=== PATIENT | male | born 1965 | race Caucasian/White ===

== ENCOUNTER 2019-07-21 16:30 | Outpatient (RCR) | payer OTHER, SELFPAY ==
--- NOTE | 2019-07-11 08:55 | PCCPR ---
Rt shoulder pain 3/10 more aggravation not certain if caused by lifting
[2019-07-11 10:06] VITALS: PULSE 56
--- NOTE | 2019-07-30 17:50 | PCCPR ---
Continued absence without call Called Bonifacio and left message requesting he give us a call and update us with his plan to return.
--- NOTE | 2019-08-04 07:26 | PCCPR ---
Bonifacio called and request discharge from program due to work schedule and financial obligation.
== END 2019-08-04 07:33 | disposition home or self-care (01) ==
LOC: ANHCPREHAB 16:30
PROVIDERS: Visit Provider Internal Medicine Cardiovascular Disease
DX: Z95.5 Presence of coronary angioplasty implant and graft (principal)
CPT/HCPCS: 93798

== ENCOUNTER 2023-05-25 01:28 | Day surgery (SDC) | payer OTHER, SELFPAY ==
[2023-05-10 16:08] VITALS: BMI 27.4
--- NOTE | 2023-05-23 10:27 | SUR.PREOP ---
Patient called regarding upcoming procedure. patient did not answer- left message with arrival time.
--- NOTE | 2023-05-24 13:21 | PC.NURSE ---
patient called in response to call 05/23/2023 to verify times and procedure. Pt reiterates understanding of instructions and times.
[2023-05-25 11:50] VITALS: BP 125/84; PULSE 93; RESP 16; TEMP 36.1; O2SAT 99
[2023-05-25] MEDS: LACTATED RINGERS 1,000 ML 150 ML IV CONT (11:57)
--- NOTE | 2023-05-25 12:25 | WPDANESEPPF ---
Anes - Initial Pre Proc Eval Procedure: Operation Date: 05/25/23 13:00 Proposed Procedures p Colonoscopy - Gary Ramon MD Date/Time: 05/25/23 12:25 Surgeon: Gary Ramon MD Pre Op Diagnosis: hx colon polyps Patient Data Age: 57 Gender: M Height: 1.73 m Weight: 81.6 kg Last Vital Signs Temp 96.9 F L 05/25/23 11:50 Pulse 93 05/25/23 11:50 Resp 16 05/25/23 11:50 BP 125/84 05/25/23 11:50 Pulse Ox 99 05/25/23 11:50 O2 Del Method Room Air 05/25/23 11:50 Allergies Allergy/AdvReac Type Severity Reaction Status Date / Time No Known Allergies Allergy Unverified 05/25/23 11:49 Home Medications Medication Instructions Recorded Confirmed Type Lactobacills gasseri-Bifidobac 1 cap PO DAILY 05/29/19 05/10/23 History bifidum,longum 1.5 billion cell capsule ([facility]) cholecalciferol (vitamin D3) 25 1,000 unit PO DAILY 05/29/19 05/10/23 History mcg (1,000 unit) capsule (Vitamin D3) aspirin 81 mg tablet,delayed 81 mg PO DAILY 12/11/19 05/10/23 History release atorvastatin 80 mg tablet 80 mg PO DAILY #30 tabs 05/25/20 05/10/23 Rx lisinopril 10 mg tablet 10 mg PO DAILY #30 tabs 05/25/20 05/10/23 Rx nitroglycerin 0.4 mg sublingual 0.4 mg sublingual Q5M PRN chest 08/15/21 05/10/23 Rx tablet pain #50 tabs metoprolol succinate 25 mg 25 mg PO DAILY 03/13/22 05/10/23 History tablet,extended release 24 hr ascorbic acid (vitamin C) 500 mg 500 mg PO DAILY 05/10/23 05/10/23 History capsule mecobalamin (vitamin B12) 1,000 1,000 mcg PO DAILY 05/10/23 05/10/23 History mcg chewable tablet Patient hx anesthesia problems: none Family hx anesthesia problems: none Results Review: All pre-operative results and documents have been reviewed as part of the pre-operative evaluation. [facility] Past Medical History Medical History (Updated 03/07/23 @ 16:03 by Andrae Cohen MD) Abnormal fasting glucose Fasting glucose 104 on 02/21/2021. Fasting glucose 90 with hemoglobin A1c 5.6 on 03/02/2022. Glucose 106 with hemoglobin A1c 5.5 on 03/05/2023. BMI 26.0-26.9,adult BMI 27.0-27.9,adult BMI 28.0-28.9,adult BMI 29.0-29.9,adult Colon cancer screening Coronary artery disease COVID-19 (~05/2021) fully vaccinated with mild illness May,. Encounter for wellness examination in adult Healthy adult male History of colon polyps Dr. Ramon colonoscopy with 1 polyp, around Oct, 2016 History of heart attack Hyperlipidemia cholesterol 123, triglycerides 101, HDL 48 and LDL 57 on 02/21/2021. total cholesterol 117, HDL 43, triglyceride 49, LDL 60 on 03/02/2022. Total cholesterol 96, triglycerides 64, HDL 36, LDL 46 with ratio 2.7 on 03/05/2023. Laceration of thumb, left (10/21/22) Left inguinal hernia Overweight (BMI 25.0-29.9) Paresthesias in left hand (~08/15/21) positional paresthesias left hand with normal exam Prostate cancer screening PSA 1.86 on 03/02/2022. PSA 1.45 on 03/05/2023. Seasonal allergies Vitamin D deficiency level normal at 44 on 12/30/2020. Normal at 59 on 03/02/2022. Surgical History Surgical History (Updated 12/16/19 @ 13:04 by Carmina Jack) H/O colonoscopy Hx of heart artery stent 2018 S/P right coronary artery (RCA) stent placement Family History Family History (System 12/16/19 @ 13:04 by Carmina Jack) Mother Asthma Father Acute myocardial infarction Cerebrovascular accident Grandparent Cancer Grandparent Brain aneurysm Father Acute myocardial infarction Hypertension Mother Active asthma Hypertension Cardiac arrhythmia Other Hypothyroid Unknown family medical history Social History Social History (Updated 09/04/22 @ 08:59 by Margoth Schultz MA) Smoking packs per day: 1 Smoking cigarettes per day: 20.0 Years smoked: 12 Smoking pack-years: 12.00 Smoking status: Former smoker Tobacco type: cigarettes and e-cigarettes/vaping Second hand toba
--- NOTE | 2023-05-25 12:25 | PM.HPGS ---
History of Present Illness History of Present Illness Consent: Risks, benefits, and alternatives have been discussed and questions answered. Patient agrees to proceed with procedure. Chief complaint: hx colon polyps Narrative: Giovanni Hilario is a 57 year old male Presents for screening colonoscopy. Patient has current weight appetite bowel movements are normal. Patient denies abdominal pain. He has had no bleeding. Family history noncontributory. Patient was found to have an adenomatous colon polyp at time of previous colonoscopy in 2017. Patient presents today for surveillance exam. Review of Systems Review of Systems: Review of systems noncontributory. [facility] Past Medical History Medical History (Updated 03/07/23 @ 16:03 by Andrae Cohen MD) Abnormal fasting glucose Fasting glucose 104 on 02/21/2021. Fasting glucose 90 with hemoglobin A1c 5.6 on 03/02/2022. Glucose 106 with hemoglobin A1c 5.5 on 03/05/2023. BMI 26.0-26.9,adult BMI 27.0-27.9,adult BMI 28.0-28.9,adult BMI 29.0-29.9,adult Colon cancer screening Coronary artery disease COVID-19 (~05/2021) fully vaccinated with mild illness May,. Encounter for wellness examination in adult Healthy adult male History of colon polyps Dr. Ramon colonoscopy with 1 polyp, around Oct, 2016 History of heart attack Hyperlipidemia cholesterol 123, triglycerides 101, HDL 48 and LDL 57 on 02/21/2021. total cholesterol 117, HDL 43, triglyceride 49, LDL 60 on 03/02/2022. Total cholesterol 96, triglycerides 64, HDL 36, LDL 46 with ratio 2.7 on 03/05/2023. Laceration of thumb, left (10/21/22) Left inguinal hernia Overweight (BMI 25.0-29.9) Paresthesias in left hand (~08/15/21) positional paresthesias left hand with normal exam Prostate cancer screening PSA 1.86 on 03/02/2022. PSA 1.45 on 03/05/2023. Seasonal allergies Vitamin D deficiency level normal at 44 on 12/30/2020. Normal at 59 on 03/02/2022. Surgical History Surgical History (Updated 12/16/19 @ 13:04 by Carmina Jack) H/O colonoscopy Hx of heart artery stent 2018 S/P right coronary artery (RCA) stent placement Family History Family History (System 12/16/19 @ 13:04 by Carmina Jack) Mother Asthma Father Acute myocardial infarction Cerebrovascular accident Grandparent Cancer Grandparent Brain aneurysm Father Acute myocardial infarction Hypertension Mother Active asthma Hypertension Cardiac arrhythmia Other Hypothyroid Unknown family medical history Social History Social History (Updated 09/04/22 @ 08:59 by Margoth Schultz MA) Smoking packs per day: 1 Smoking cigarettes per day: 20.0 Years smoked: 12 Smoking pack-years: 12.00 Smoking status: Former smoker Tobacco type: cigarettes and e-cigarettes/vaping Second hand tobacco smoke exposure: Yes Additional smoking assessment comments: VAPED STOPPED 4YRS AN NOW VAPING AGAIN Alcohol intake: former Drinks per week: 1 Substance use: never Substance use type: does not use Lack of Transportation: No Lack of Food: Never True Current Housing: I Have Housing Concerned About Future Housing: No Difficulty Paying Gas/Electric Bills: No Difficulty Paying for Meds: No Currently Unemployed: No Education: High School Diploma/GED Difficulty w/ Childcare or Family Care: No Living arrangements: with family Gender identity (if verbalized by the patient): Male Spiritual care concerns: No Agree to blood products: Yes Meds Home Medications and Allergies Home Medications Medication Instructions Recorded Confirmed Type Lactobacills gasseri-Bifidobac 1 cap PO DAILY 05/29/19 05/10/23 History bifidum,longum 1.5 billion cell capsule ([employer]) cholecalciferol (vitamin D3) 25 1,000 unit PO DAILY 05/29/19 05/10/23 History mcg (1,000 unit) capsule (Vitamin D3) aspirin 81 mg tablet,delayed 81 mg PO DAILY 12/10
[2023-05-25 12:46] VITALS: BP 95/68; PULSE 95; RESP 16; O2SAT 95
[2023-05-25 12:56] VITALS: BP 103/67; PULSE 81; RESP 21; O2SAT 99
[2023-05-25 13:06] VITALS: BP 115/78; PULSE 85; RESP 18; O2SAT 99
== END 2023-05-25 13:16 | disposition home or self-care (01) ==
PROVIDERS: PCP Family Medicine; Visit Provider Internal Medicine Gastroenterology
PROC: 0DJD8ZZ Inspection of Lower Intestinal Tract, Via Natural or Artificial Opening Endoscopic (ICD-10-PCS; CPT 45378; principal; 2023-05-25 13:00)
DX: Z12.11 Encounter for screening for malignant neoplasm of colon (principal); K52.9 Noninfective gastroenteritis and colitis, unspecified; Z86.010 Personal history of colon polyps; Z87.891 Personal history of nicotine dependence; E78.5 Hyperlipidemia, unspecified; I25.10 Atherosclerotic heart disease of native coronary artery without angina pectoris; E55.9 Vitamin D deficiency, unspecified
CPT/HCPCS: 45380; 88305; J2704; J7120